=== PATIENT | female | born 1995 | race Caucasian/White ===

== ENCOUNTER 2021-01-14 00:42 | Emergency (ER) | payer BC ==
[~2021-01-14] VITALS: Ht 172.7 cm; Wt 84.5 kg
[2021-01-14 00:57] VITALS: BP 130/67
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
[2021-01-14] MEDS ORDERED: IV RINGERS SOLUTION,LACTATED 1,000 ML IV SCH (01:30)
[2021-01-14 01:41] LABS: BILIRUBIN,URINE NEG (NEG); CLARITY,URINE CLOUDY; COLOR,URINE YELLOW; GLUCOSE,URINE 100 mg/dL (NEG); NITRITE,URINE NEG (NEG); UROBILINOGEN,URINE 0.2 mg/dL (0.2 mg/dL)
[2021-01-14 01:44] LABS: BACTERIA,URINE MOD /HPF (0-FEW); SQUAMOUS EPITHELIAL CELL,UR MANY /LPF
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
== END 2021-01-14 02:27 | disposition home or self-care (01) ==
LOC: ER 00:42
DX: O26.893 Other specified pregnancy related conditions, third trimester (principal); Z67.11 Type A blood, Rh negative; Z3A.32 32 weeks gestation of pregnancy
CPT/HCPCS: 76805; 81001; 87086; 99284-25